=== PATIENT | female | born 1985 | race Caucasian/White ===

== ENCOUNTER 2022-12-21 13:52 | Emergency (ER) | payer OTHER, SELFPAY ==
[2022-12-21 14:04] VITALS: BP 131/75; PULSE 86; RESP 16; TEMP 36.3; O2SAT 99
[2022-12-21 14:50] LABS: Appearance Urine Cloudy (Clear); Bacteria Urine Rare /hpf; Bilirubin Urine 1+ (Negative); Blood Urine Negative (Negative); Color Urine Dark Yellow (Yellow); Glucose Urine UA Negative (Negative); Ketones Urine 1+ mg/dL (Negative); Leukocyte Esterase Ur Trace LEU/UL (Negative); Mucus Urine Present /lpf; Nitrate Urine Negative (Negative); Non Pathogenic Casts 0-2; Protein Urine 1+ mg/dL (Negative); Squamous Epithelial Cell Urine Few /hpf (Few); pH Urine 5.5 (5.0-9.0)
[2022-12-21 14:51] LABS: Specific Grav Ur 1.042 (1.001-1.035)
[2022-12-21 14:52] LABS: Add Urine Microscopic? YES
--- NOTE | 2022-12-21 15:07 | ED.GENADULT ---
HPI - General Adult General Chief complaint: Abdominal Pain Stated complaint: UTI Time Seen by Provider: 12/21/22 13:58 History of Present Illness HPI narrative: 37-year-old female history of MS presents to the emergency room for evaluation of dysuria, suprapubic tenderness that radiates into her left flank. Patient states the symptoms are similar to when she has had UTIs in the past. Denies fevers. Also endorses urinary urgency, frequency. Related Data Allergies Allergy/AdvReac Type Severity Reaction Status Date / Time sulfamethoxazole Allergy Gastrointestinal Verified 12/21/22 13:54 [From Bactrim] Upset trimethoprim [From Bactrim] Allergy Gastrointestinal Verified 12/21/22 13:54 Upset tuberculin, purified protein Allergy Rash Verified 12/21/22 13:54 deriva Review of Systems Review of Systems: CONSTITUTIONAL: Denies fever, chills, or sweats. EYES: Denies visual changes, redness, or discharge. ENT: Denies rhinorrhea, congestion, sore throat, or otalgia. CARDIOVASCULAR: Denies chest pain, palpitations, or edema. RESPIRATORY: Denies cough or dyspnea. GASTROINTESTINAL: Denies abdominal pain, nausea, vomiting, or diarrhea. GENITOURINARY: Reports dysuria SKIN: Denies rash or itching. MUSCULOSKELETAL: Denies back pain, joint pain, or myalgia. NEUROLOGIC: Denies headache, numbness, dizziness, or weakness. PSYCHIATRIC: Denies anxiety or depression. Exam Narrative: GENERAL: Well-appearing, well-nourished, no physical limitations, and in no acute distress. HEAD: Normocephalic, atraumatic. EYES: Conjunctivae normal, PERRLA and EOMI. CHEST: Clear to auscultation. No respiratory distress. No wheezes rales or rhonchi. HEART: Regular rate and rhythm. No murmur heard. Normal peripheral pulses. ABDOMEN: Soft, nontender, nondistended, normal active bowel sounds. BACK: No CVA tenderness EXTREMITIES: Normal range of motion. No edema. No clubbing or cyanosis SKIN: Warm, dry, no rash. No noted wounds NEURO: No focal deficits. Alert and oriented x3. MAEW. CN's II-XI intact bilaterally, normal gait PSYCH: Cooperative. Normal mood and affect. Course Vital Signs Vital signs: Vital Signs Temperature 36.3 C L 12/21/22 14:04 Pulse Rate 86 12/21/22 14:04 Respiratory Rate 16 12/21/22 14:04 Blood Pressure 131/75 12/21/22 14:04 Pulse Oximetry 99 12/21/22 14:04 Oxygen Delivery Room Air 12/21/22 14:04 Temperature 36.3 C L 12/21/22 14:04 Pulse Rate 86 12/21/22 14:04 Respiratory Rate 16 12/21/22 14:04 Blood Pressure 131/75 12/21/22 14:04 Pulse Oximetry 99 12/21/22 14:04 Oxygen Delivery Room Air 12/21/22 14:04 Medical Decision Making Vital Signs Vital Signs: Vital Signs Temperature 36.3 C L 12/21/22 14:04 Pulse Rate 86 12/21/22 14:04 Respiratory Rate 16 12/21/22 14:04 Blood Pressure 131/75 12/21/22 14:04 Pulse Oximetry 99 12/21/22 14:04 Oxygen Delivery Room Air 12/21/22 14:04 Temperature 36.3 C L 12/21/22 14:04 Pulse Rate 86 12/21/22 14:04 Respiratory Rate 16 12/21/22 14:04 Blood Pressure 131/75 12/21/22 14:04 Pulse Oximetry 99 12/21/22 14:04 Oxygen Delivery Room Air 12/21/22 14:04 Lab Data Labs: Lab Results 12/21/22 Range/Units 14:12 Urine Color Dark yellow (Yellow) Urine Appearance Cloudy H (Clear) Urine pH 5.5 (5.0-9.0) Ur Specific [place] 1.042 H (1.001-1.035) Urine Protein 1+ H (Negative) mg/dL Urine Glucose (UA) Negative (Negative) mg/dL Urine Ketones 1+ H (Negative) mg/dL Ur Blood (Man) Negative (Negative) Urine Nitrate Negative (Negative) Urine Bilirubin 1+ H (Negative) Urine Urobilinogen 1.0 (<2.0) mg/dL Leukocyte Esterase Rfl Trace H (Negative) SPENSER/UL Urine RBC 3-5 H (0-2) /hpf Urine WBC 6-10 H /hpf Ur Squamous Epith Cells Few (Few) /hpf Urine Bacteria Rare /hpf Urine Casts 0-2 Urine Mucus Present /lpf UCG Bedside Result Negative
== END 2022-12-21 15:21 | disposition home or self-care (01) ==
PROVIDERS: Emergency Provider Nurse Practitioner Family; PCP Family Medicine
DX: N39.0 Urinary tract infection, site not specified (principal)
CPT/HCPCS: 81001; 81025; 87086; 87088; 99283

== ENCOUNTER 2022-12-22 20:05 | Emergency (ER) | payer OTHER, SELFPAY ==
[2022-12-22 20:04] VITALS: BP 151/103; PULSE 108; RESP 20; TEMP 37.4; O2SAT 99
[2022-12-22 22:25] VITALS: BP 114/74; PULSE 97; RESP 16; TEMP 36.2; O2SAT 96
[2022-12-22] MEDS: DULoxetine HCL 60 MG CAPSULE.DR PO (23:39)
[2022-12-22] MEDS: BACLOFEN 10 MG TABLET 20 MG PO (23:39)
[2022-12-22] MEDS: GABAPENTIN 300 MG CAPSULE 600 MG PO (23:39)
[2022-12-23] VITALS (8 sets, daily range): BP systolic 120–133; BP diastolic 72–81; PULSE 84; RESP 15; TEMP 36.4; O2SAT 94–99
[2022-12-23] MEDS: SODIUM CHLORIDE 0.9% IV 1,000 ML 999 ML IV CONT (00:38)
[2022-12-23] MEDS: ONDANSETRON INJ 4 MG/2 ML VIAL IV PUSH (00:39)
[2022-12-23] MEDS: MORPHINE SULFATE (*CRX) 4 MG/ML INJ IV PUSH (00:40)
--- NOTE | 2022-12-23 00:44 | PC.NURSE ---
Patient was assisted to the bathroom via wheelchair and a nurse, but was unable to produce a urine sample.
--- NOTE | 2022-12-23 00:58 | ED.GENADULT ---
HPI - General Adult General Chief complaint: Unspecified Stated complaint: UTI, nerve pain Time Seen by Provider: 12/22/22 23:54 History of Present Illness HPI narrative: Patient 37-year-old female who presents the emergency department with chief complaint of generalized weakness. The patient reports she has history of MS and reports that she is followed by a neurologist at [facility]. The patient reports that she was seen in the emergency department yesterday for urinary tract infection and reports that she was started on oral antibiotics but vomited them up at home patient states she been extremely weak since then and is now having difficulty ambulating to her bathroom. Patient reports having generalized pain over her entire body as she has whenever she gets a UTI and has an exacerbation of her MS. Related Data Allergies Allergy/AdvReac Type Severity Reaction Status Date / Time sulfamethoxazole Allergy Gastrointestinal Verified 12/22/22 23:47 [From Bactrim] Upset trimethoprim [From Bactrim] Allergy Gastrointestinal Verified 12/22/22 23:47 Upset tuberculin, purified protein Allergy Rash Verified 12/22/22 23:47 deriva Review of Systems Review of Systems: A 10 system review of systems was completed on the patient and is negative except for what is stated in the HPI. Nursing and ancillary documentation was reviewed. Exam Narrative: GENERAL: Well-appearing, well-nourished, and in no acute distress. HEAD: Normocephalic, atraumatic. EYES: PERRLA and EOMI. ENT: Nares clear, no rhinorrhea or epistaxis. Mucous membranes moist. NECK: Supple. CHEST: Clear to auscultation. No respiratory distress. HEART: Regular rate and rhythm. No murmur heard. Normal peripheral pulses. ABDOMEN: Soft, nontender, nondistended, normal active bowel sounds. EXTREMITIES: Normal range of motion. No edema. SKIN: Warm, dry, no rash. NEURO: No focal deficits. Alert and oriented x3. PSYCH: Normal mood and affect. Course Vital Signs Vital signs: Vital Signs Temperature 37.4 C 12/22/22 20:04 Pulse Rate 108 H 12/22/22 20:04 Respiratory Rate 20 12/22/22 20:04 Blood Pressure 151/103 H 12/22/22 20:04 Pulse Oximetry 99 12/22/22 20:04 Oxygen Delivery Room Air 12/22/22 20:04 Temperature 36.2 C L 12/22/22 22:25 Pulse Rate 97 12/22/22 22:25 Respiratory Rate 16 12/22/22 22:25 Blood Pressure 133/81 12/23/22 01:31 Pulse Oximetry 95 12/23/22 02:24 Oxygen Delivery Room Air 12/22/22 20:04 Medical Decision Making MDM Narrative Medical decision making narrative: Differential diagnosis includes dehydration, UTI, electrolyte abnormality MS exacerbation. Patient received hydration pain control and a dose of IV Rocephin in the emergency department The patient is feeling better at this time and would like to try outpatient therapy and following up with her neurologist as an outpatient. Vital Signs Vital Signs: Vital Signs Temperature 37.4 C 12/22/22 20:04 Pulse Rate 108 H 12/22/22 20:04 Respiratory Rate 20 12/22/22 20:04 Blood Pressure 151/103 H 12/22/22 20:04 Pulse Oximetry 99 12/22/22 20:04 Oxygen Delivery Room Air 12/22/22 20:04 Temperature 36.2 C L 12/22/22 22:25 Pulse Rate 97 12/22/22 22:25 Respiratory Rate 16 12/22/22 22:25 Blood Pressure 133/81 12/23/22 01:31 Pulse Oximetry 95 12/23/22 02:24 Oxygen Delivery Room Air 12/22/22 20:04 Lab Data 12/23/22 01:08 12/23/22 01:08 Labs: Lab Results 12/23/22 12/23/22 12/23/22 Range/Units 01:08 01:08 01:08 WBC 9.8 (4.5-10.0) K/mm3 RBC 4.45 (4.2-5.4) M/mm3 Hgb 14.1 (12.0-15.0) g/dL Hct 41.8 (37.0-47.0) % MCV 93.9 (80-100) fl MCH 31.7 (26-34) pg MCHC 33.7 (32-36) g/dl RDW 12.2 (11.5-14.5) % Plt Count 426 H (150-375) k/mm3 MPV 10.3 (7.4-10.4) fl Immature Gran % (Auto) 0.5 (0-0.5) % Neut % (Auto) 67.4 (45.5-7
[2022-12-23 01:18] LABS: Basophils Percent Auto 0.3 % (0.2-1.2); Eosinophils Absolute Auto 0.1 K/mm3 (0-0.3); Eosinophils Percent Auto 0.7 % (0-4.4); Hematocrit 41.8 % (37.0-47.0); Hemoglobin 14.1 g/dL (12.0-15.0); Immature Granulocyte Absolute 0.05 K/mm3 (0.00-0.031); Immature Granulocyte Percent A 0.5 % (0-0.5); Lymphocytes Absolute Auto 2.48 K/mm3 (0.9-3.2); Lymphocytes Percent Auto 25.4 % (18.3-44.2); Mean Corpuscular HGB Conc 33.7 g/dl (32-36); Mean Corpuscular Hemoglobin 31.7 pg (26-34); Mean Corpuscular Volume 93.9 fl (80-100); Mean Platelet Volume 10.3 fl (7.4-10.4); Monocytes Absolute Auto 0.6 K/mm3 (0.1-0.6); Monocytes Percent Auto 5.7 % (2.6-8.5); Neutrophils Absolute Auto 6.6 K/mm3 (1.3-6.7); Neutrophils Percent Auto 67.4 % (45.5-73.1); Platelet Count Result 426 k/mm3 (150-375); Red Blood Count 4.45 M/mm3 (4.2-5.4); Red Cell Distribution Width 12.2 % (11.5-14.5); White Blood Count 9.8 K/mm3 (4.5-10.0)
[2022-12-23 01:26] LABS: Alanine Aminotransferase 59 U/L (6-35); Albumin Level 4.3 g/dL (3.5-5.1); Alkaline Phosphatase 70 U/L (38-126); Anion Gap 8 mmol/L (8-16); Aspartate Amino Transferase 44 U/L (14-36); Bilirubin,Total 0.5 mg/dL (0.2-1.3); Blood Urea Nitrogen 12 mg/dL (7-17); Calcium 8.5 mg/dL (8.4-10.2); Carbon Dioxide 26 mmol/L (22-30); Chloride 107 mmol/L (98-107); Estimated CRCL calculation 106 ml/min; Estimated Glomerular Filt Rate > 60; Glucose 102 mg/dL (65-110); Potassium 3.4 mmol/L (3.4-5.0); Sodium 141 mmol/L (137-145)
[2022-12-23 02:35] LABS: Appearance Urine Turbid (Clear); Bacteria Urine 4+ /hpf; Bilirubin Urine 1+ (Negative); Blood Urine Negative (Negative); Color Urine Dark Yellow (Yellow); Glucose Urine UA Negative (Negative); Ketones Urine Trace mg/dL (Negative); Leukocyte Esterase Ur 2+ LEU/UL (Negative); Need Manual Microscopic Reviewed; Nitrate Urine Negative (Negative); Protein Urine Trace mg/dL (Negative); Specific Grav Ur 1.026 (1.001-1.035); Squamous Epithelial Cell Urine Many /hpf (Few); pH Urine 6.5 (5.0-9.0)
[2022-12-23 02:42] LABS: Add Urine Microscopic? YES
== END 2022-12-23 03:04 | disposition home or self-care (01) ==
PROVIDERS: Emergency Provider Emergency Medicine; PCP Family Medicine
DX: N39.0 Urinary tract infection, site not specified (principal); G35 Multiple sclerosis
CPT/HCPCS: 36415; 80053; 81001; 83605; 83735; 85025; 87040; 87086; 87088; 96365; 96375; 99284; A9270; J0696; J2270; J2405; J7030